=== PATIENT | female | born 1960 | race Caucasian/White ===

== ENCOUNTER 2017-06-03 22:07 | Emergency (ER) | payer OTHER ==
[2017-06-03 22:08] VITALS: BP 194/81; PULSE 80; RESP 16; TEMP 97.9; O2SAT 95
[2017-06-03] MEDS ORDERED: SODIUM CHLOR 0.9% 1000 ML INJ 1,000 ML IV SCH (23:56)
[2017-06-04] MEDS ORDERED: ONDANSETRON HCL 4 MG/2 ML VIAL IVP ONE
[2017-06-04] MEDS ORDERED: SODIUM CHLORIDE 0.9% FLUSH 10 ML FLUSH IV FLUSH PRN
[2017-06-04] MEDS ORDERED: KETOROLAC TROMETHAMINE 30 MG/ML (IVP) VIAL IVP ONE
[2017-06-04] MEDS ORDERED: MORPHINE SULFATE 4 MG/ML INJ IV PUSH ONE
--- NOTE | 2017-06-04 00:01 | PD ---
HPI Chief Complaint: Complaint Time Seen by Provider: 23:48 Travel History International Travel<30 days: No Contact w/Intl Traveler<30days: No Traveled to known affect area: No History of Present Illness HPI The patient is a 57-year-old female who presents emergency department for right flank pain. The patient developed right flank pain earlier today that radiates into the right groin. The pain was sharp, consistent with previous pain from prior kidney stones, and associated with hematuria. She did complain of mild nausea but denies any vomiting. The patient does have a previous history of kidney stones, states this pain was very similar to her previous pain. She denies any dysuria, frequency, or urgency. She does complain of pain that radiates into the right inguinal aspect and groin. She denies any accompanying fever, chills, or sweats. Symptoms are moderate, possibly exacerbated by kidney stones, and there are no current alleviating factors. She rates her pain a 4/10, states it has improved on its own from earlier today. [facility] Past Medical History High Cholesterol: Yes Diminished Hearing: No Kidney Stones: Yes (HX) Social History Alcohol Use: No Tobacco Use: Yes (1/2PPD) Substance Use: No Allergies-Medications (Allergen,Severity, Reaction): Coded Allergies: ciprofloxacin (Verified Allergy, Severe, 06/03/17) Review of Systems Except as stated in HPI: all other systems reviewed are Neg General / Constitutional: No: Fever Cardiovascular: No: Chest Pain or Discomfort Respiratory: No: Shortness of Breath Gastrointestinal: Positive: Nausea, Abdominal Pain, No: Vomiting Genitourinary: Positive: Hematuria, Flank Pain, No: Urgency, Frequency, Dysuria Skin: No Rash Physical Exam Narrative GENERAL: Awake, alert, nontoxic-appearing 57-year-old female who appears her stated age and is in no acute respiratory distress. SKIN: Focused skin assessment warm/dry. HEAD: Atraumatic. Normocephalic. EYES: No injection or drainage. ENT: No nasal bleeding or discharge. Mucous membranes pink and moist. NECK: Trachea midline. No JVD. CARDIOVASCULAR: Regular rate and rhythm. No murmur appreciated. RESPIRATORY: No accessory muscle use. Clear to auscultation. Breath sounds equal bilaterally. GASTROINTESTINAL: Abdomen soft, minimal suprapubic tenderness. Back: No CVA tenderness. MUSCULOSKELETAL: No obvious deformities. No clubbing. No cyanosis. No edema. NEUROLOGICAL: Awake and alert. No obvious cranial nerve deficits. Motor grossly within normal limits. Normal speech. PSYCHIATRIC: Appropriate mood and affect; insight and judgment normal. Data Data Last Documented VS Vital Signs Date Time Temp Pulse Resp B/P (MAP) Pulse Ox O2 Delivery O2 Flow Rate FiO2 06/04/17 00:14 100 Room Air 06/03/17 22:08 97.9 80 16 Orders Orders Urinalysis - C+S If Indicated (06/03/17 23:08) Complete Blood Count With Diff (06/03/17 23:56) Comprehensive Metabolic Panel (06/03/17 23:56) Ct Abd/Pel W/O Iv Contrast (06/03/17 23:56) Iv Access Insert/Monitor (06/03/17 23:56) Ecg Monitoring (06/03/17 23:56) Oximetry (06/03/17 23:56) Morphine Inj (Morphine Inj) (06/04/17 00:00) Ondansetron Inj (Zofran Inj) (06/04/17 00:00) Sodium Chlor 0.9% 1000 Ml Inj (Ns 1000 M (06/03/17 23:56) Sodium Chloride 0.9% Flush (Ns Flush) (06/04/17 00:00) Ketorolac Inj (Toradol Inj) (06/04/17 00:00) Urine Culture (06/03/17 23:00) Ceftriaxone Inj (Rocephin Inj) (06/04/17 00:45) Labs Laboratory Tests Test 06/03/17 23:00 06/04/17 00:13 Urine Color RED Urine Turbidity HAZY Urine pH 5.5 Urine Specific [place] 1.021 Urine Protein 30 mg/dL Urine Glucose (UA) NEG mg/dL Urine Ketones TRACE mg/dL Urine Occult Blood LARGE Urine Nitrite NEG Urine Bilirubin NEG Urine Urobilinogen LESS THAN 2.0 MG/DL Urine Leukocyte Esterase SMALL Urine RBC /hpf Urine WBC 60 /hpf Urine Squamous Epithelial Cells 2 /hpf Urine Mucus MANY /lpf Microscopic Urinalysis Comment CULTURE INDICATED White Blood Count 13.0 TH/MM3 Red Blood Count 4.42 MIL/MM3 Hemoglobin 13.0 GM/DL Hematocrit 38.0 % Mean Corpuscular Volume 85.9 FL Mean Corpuscular Hemoglobin 29.3 PG Mean Corpuscular Hemoglobin Concent 34.1 % Red Cell Distribution Width 12.9 % Platelet Count 296 TH/MM3 Mean Platelet Volume 8.6 FL Neutrophils (%) (Auto) 70.3 % Lymphocytes (%) (Auto) 20.3 % Monocytes (%) (Auto) 8.4 % Eosinophils (%) (Auto) 0.6 % Basophils (%) (Auto) 0.4 % Neutrophils # (Auto) 9.2 TH/MM3 Lymphocytes # (Auto) 2.6 TH/MM3 Monocytes # (Auto) 1.1 TH/MM3 Eosinophils # (Auto) 0.1 TH/MM3 Basophils # (Auto) 0.1 TH/MM3 CBC Comment DIFF FINAL Differential Comment Blood Urea Nitrogen 18 MG/DL Creatinine 0.76 MG/DL Random Glucose 125 MG/DL Total Protein 6.8 GM/DL Albumin 3.5 GM/DL Calcium Level 8.4 MG/DL Alkaline Phosphatase 110 U/L Aspartate Amino Transf (AST/SGOT) 15 U/L Alanine Aminotransferase (ALT/SGPT) 20 U/L Total Bilirubin 0.2 MG/DL Sodium Level 141 MEQ/L Potassium Level 3.5 MEQ/L Chloride Level 109 MEQ/L Carbon Dioxide Level 26.2 MEQ/L Anion Gap 6 MEQ/L Estimat Glomerular Filtration Rate 78 ML/MIN [facility] Medical Decision Making Medical Screen Exam Complete: Yes Emergency Medical Condition: Yes Medical Record Reviewed: Yes Interpretation(s) Laboratory Tests Test 06/03/17 23:00 06/04/17 00:13 Urine Color RED Urine Turbidity HAZY Urine pH 5.5 Urine Specific [place] 1.021 Urine Protein 30 mg/dL Urine Glucose (UA) NEG mg/dL Urine Ketones TRACE mg/dL Urine Occult Blood LARGE Urine Nitrite NEG Urine Bilirubin NEG Urine Urobilinogen LESS THAN 2.0 MG/DL Urine Leukocyte Esterase SMALL Urine RBC /hpf Urine WBC 60 /hpf Urine Squamous Epithelial Cells 2 /hpf Urine Mucus MANY /lpf Microscopic Urinalysis Comment CULTURE INDICATED White Blood Count 13.0 TH/MM3 Red Blood Count 4.42 MIL/MM3 Hemoglobin 13.0 GM/DL Hematocrit 38.0 % Mean Corpuscular Volume 85.9 FL Mean Corpuscular Hemoglobin 29.3 PG Mean Corpuscular Hemoglobin Concent 34.1 % Red Cell Distribution Width 12.9 % Platelet Count 296 TH/MM3 Mean Platelet Volume 8.6 FL Neutrophils (%) (Auto) 70.3 % Lymphocytes (%) (Auto) 20.3 % Monocytes (%) (Auto) 8.4 % Eosinophils (%) (Auto) 0.6 % Basophils (%) (Auto) 0.4 % Neutrophils # (Auto) 9.2 TH/MM3 Lymphocytes # (Auto) 2.6 TH/MM3 Monocytes # (Auto) 1.1 TH/MM3 Eosinophils # (Auto) 0.1 TH/MM3 Basophils # (Auto) 0.1 TH/MM3 CBC Comment DIFF FINAL Differential Comment Blood Urea Nitrogen 18 MG/DL Creatinine 0.76 MG/DL Random Glucose 125 MG/DL Total Protein 6.8 GM/DL Albumin 3.5 GM/DL Calcium Level 8.4 MG/DL Alkaline Phosphatase 110 U/L Aspartate Amino Transf (AST/SGOT) 15 U/L Alanine Aminotransferase (ALT/SGPT) 20 U/L Total Bilirubin 0.2 MG/DL Sodium Level 141 MEQ/L Potassium Level 3.5 MEQ/L Chloride Level 109 MEQ/L Carbon Dioxide Level 26.2 MEQ/L Anion Gap 6 MEQ/L Estimat Glomerular Filtration Rate 78 ML/MIN CT the abdomen and pelvis reveals bilateral renal stones. Mild hydronephrosis and hydroureter on the right side with a small calcification in the dependent portion of the left urinary bladder, possibly representing a recently passed stone. No calcified stones seen along the course of the right ureter. Differential Diagnosis Differential diagnosis includes nephrolithiasis, hydronephrosis, pyelonephritis , shingles, renal colic, atypical appendicitis, diverticulitis. Narrative Course IV was established, labs are drawn and sent, and the patient was placed on cardiac telemetry monitoring and continuous pulse oximetry monitoring. The patient was administered morphine, Toradol, Zofran, and IV fluids. Noncontrast CT of the abdomen and pelvis was obtained to evaluate for renal stone. CT of the abdomen and pelvis revealed mild hydronephrosis and hydroureter on the right side with a small calcification in the dependent portion of the left urinary bladder, possibly representing a recently passed stone. The patient's pain has improved. UA does reveal hematuria with 60 WBCs, therefore, the patient received Rocephin 1 g intravenously. The patient appears to have passed a kidney stone, may have a small underlying UTI. She states she had a severe allergic reaction to either Cipro or Bactrim, therefore, was administered Rocephin and will be discharged home on a cephalosporin and pain medications. She is advised to follow-up with her urologist. Diagnosis Primary Impression: Renal colic on right side Patient Instructions: General Instructions Additional Instructions: Please provide the patient a copy of her CT results and lab results at discharge. Medications as directed. Follow-up with your urologist and primary physician. Return if symptoms worsen or progress. Med/Other Pt SpecificInfo: Prescription(s) given Scripts Ibuprofen (Ibuprofen) 600 Mg Tab 600 MG PO Q6H Y for Pain/Inflammation, #20 TAB 0 Refills Prov: Wayne Farooq MD 06/04/17 Hydrocodone-Acetaminophen ([place]) 5-325 mg Tab 1 TAB PO Q6H Y for PAIN, #12 TAB 0 Refills Prov: Wayne Farooq MD 06/04/17 Cefixime (Suprax) 400 Mg Cap 400 MG PO DAILY for Infection for 7 Days, #7 CAP 0 Refills Prov: Wayne Farooq MD 06/04/17 Disposition: 01 DISCHARGE HOME Condition: Stable Wayne Farooq MD Jun 04, 2017 00:01
[2017-06-04 00:04] LABS: BLOOD, URINE LARGE (NEG); COMMENT (UR) CULTURE INDICATED; CULTURE IF INDICATED CULTURE INDICATED; GLUCOSE,URINE NEG (NEG); KETONE, URINE TRACE mg/dL (NEG); MUCUS URINE MANY /lpf (OCC); NITRITE,URINE NEG (NEG); PH, URINE 5.5 (5.0-8.5); SQUAMOUS EPITHELIAL CELL URINE 2 /hpf (0-5); URINE COLOR RED (YELLW/STRAW)
[2017-06-04 00:14] VITALS: O2SAT 100
[2017-06-04] MEDS ORDERED: cefTRIAXone INJ 1,000 MG in SODIUM CHLORIDE 0.9% INJ 100 ML IV ONE (00:45)
[2017-06-04 00:55] LABS: AUTOMATED NEUTROPHIL # 9.2 TH/MM3 (1.8-7.7); BASOPHIL # 0.1 TH/MM3 (0-0.2); BASOPHIL % 0.4 % (0.0-2.0); EOSINOPHIL # 0.1 TH/MM3 (0-0.4); EOSINOPHIL % 0.6 % (0.0-4.0); HEMO FLAGS DIFF FINAL; LYMPH % 20.3 % (9.0-44.0); LYMPHOCYTE # 2.6 TH/MM3 (1.0-4.8); MEAN CELL VOLUME 85.9 FL (80.0-100.0); MEAN CORPUSCULAR HEMOGLOBIN 29.3 PG (27.0-34.0); MEAN CORPUSCULAR HGB CONC 34.1 % (32.0-36.0); MONO % 8.4 % (0.0-8.0); NEUT % 70.3 % (16.0-70.0); PLATELET COUNT 296 TH/MM3 (150-450); RED BLOOD COUNT 4.42 MIL/MM3 (4.00-5.30); RED CELL DISTRIBUTION WIDTH 12.9 % (11.6-17.2)
--- NOTE | 2017-06-04 01:01 | RADRPT ---
EXAM DATE/TIME: 06/04/2017 00:18 [place] COMPARISON: No previous studies available for comparison. INDICATIONS : Right flank pain; possible renal calculi. ORAL CONTRAST: No oral contrast ingested. RADIATION DOSE: 7.64 CTDIvol (mGy) MEDICAL HISTORY : None SURGICAL HISTORY : None. ENCOUNTER: Initial ACUITY: 1 day PAIN SCALE: 7/10 LOCATION: Right flank abdomen TECHNIQUE: Renal colic protocol. Volumetric scanning of the abdomen and pelvis was performed. Using automated exposure control and adjustment of the mA and/or kV according to patient size, radiation dose was kep t as low as reasonably achievable to obtain optimal diagnostic quality images. DICOM format image da ta is available electronically for review and comparison. FINDINGS: Right side: 8 mm calcified stone lower pole. There is mild dilation of the collecting system of the right kidney and mild dilation of the right ureter, but no calcified stones along the right ureter. Left side: 3 mm calcified stone lower pole without hydronephrosis. Normal dimension left ureter. Bladder: There is a 2 mm calcified stone in the lumen of the urinary bladder posterior and on the left side. Other: No dilated loops of small or large bowel. Normal dimension abdominal aorta. No calcified gallstones . CONCLUSION: Bilateral renal stones. Mild hydronephrosis and hydroureter on the right side with a small calcifica tion in the dependent portion of the left urinary bladder, possibly representing a recently passed st one. No calcified stones seen along the course of the right ureter. Brian Merino MD on June 04, 2017 at 0:33 Board Certified Radiologist. This report was verified electronically.
[2017-06-04 01:12] LABS: ALT (GPT) 20 U/L (10-53); ANION GAP 6 MEQ/L (5-15); AST (GOT) 15 U/L (15-37); BICARBONATE 26.2 MEQ/L (21.0-32.0); BLOOD UREA NITROGEN 18 MG/DL (7-18); CHLORIDE 109 MEQ/L (98-107); GLOMERULAR FILTRATION RATE 78 ML/MIN (>89); POTASSIUM 3.5 MEQ/L (3.5-5.1); SODIUM (NA) 141 MEQ/L (136-145)
[2017-06-04 01:14] LABS: ALKALINE PHOSPHATASE 110 U/L (45-117); TOTAL BILIRUBIN ADULT 0.2 MG/DL (0.2-1.0)
[2017-06-04 01:19] VITALS: BP 113/56; PULSE 76; RESP 18; O2SAT 97
[2017-06-04] MEDS ORDERED: IBUP-232 PO (01:19)
[2017-06-04] MEDS ORDERED: CEFI5CAP PO (01:19)
[2017-06-04] MEDS ORDERED: NORC5TAB PO (01:19)
== END 2017-06-04 01:59 | disposition home or self-care (01) ==
LOC: NEPE 22:07
DX: N20.0 Calculus of kidney (principal); F17.210 Nicotine dependence, cigarettes, uncomplicated
CPT/HCPCS: 74176; 80053; 81001; 85025; 87086; 96365; 96375; 99285; J0696; J1885; J2270; J2405; J7030